=== PATIENT | female | born 1930 | race Caucasian/White ===

== ENCOUNTER → 2016-12-24 | Outpatient (CLI) | payer MEDICARE, BC ==
[2016-12-24 17:32] LABS: BUN 19 mg/dL (7-18)
[2016-12-24 18:30] LABS: GFR (ESTIMATED) 68 ML/MIN (59-)
== END ==
LOC: LAB 15:46
PROVIDERS: Emergency Medicine
DX: E11.9 Type 2 diabetes mellitus without complications (principal)

== ENCOUNTER → 2017-09-16 | Outpatient (CLI) | payer MEDICARE, BC ==
[~2017-09-16] MED LIST: BENZONATATE200 MG PO; GLIPIZIDE ER 5MG5 MG PO; LISINOPRIL2.5 MG PO; LOVASTATIN10 MG PO; METFORMIN HCL1000 MG PO; METOPROLOL SUCC50 M4 PO; RANITIDINE 150150 MG PO; ZITHROMAX Z PA250 MG PO
[2017-09-16 19:06] LABS: HEMOGLOBIN 12.4 g/dL (12.2-16.2); LYMPH # 1.8 K/mm3 (0.7-4.5); LYMPH % 39.9 % (10-50.0)
[2017-09-17 12:00] LABS: BUN 20 mg/dL (7-18)
[2017-09-17 12:01] LABS: GFR (ESTIMATED) 59 ML/MIN (59-)
== END ==
LOC: LAB 17:55
PROVIDERS: Emergency Medicine
DX: E11.9 Type 2 diabetes mellitus without complications (principal)